=== PATIENT | male | born 1995 | race African-American/Black ===

== ENCOUNTER 2016-09-04 14:30 | Emergency (ER) | payer MEDICAID, OTHER ==
[~2016-09-04] VITALS: Ht 175.3 cm; Wt 58.0 kg
[2016-09-04] MEDS ORDERED: IBUPROFEN 600MG TABLET PO ONE (15:00)
[2016-09-04] MEDS ORDERED: HYDROCODONE/ACETAMINOPHEN 5/325MG TABLET PO ONE (15:00)
[2016-09-04 16:57] VITALS: BP 144/82
== END 2016-09-04 17:50 | disposition home or self-care (01) ==
LOC: ER 16:51
DX: S02.40EA Zygomatic fracture, right side, initial encounter for closed fracture (principal); S09.8XXA Other specified injuries of head, initial encounter; M25.432 Effusion, left wrist; J45.909 Unspecified asthma, uncomplicated; F12.10 Cannabis abuse, uncomplicated; F17.200 Nicotine dependence, unspecified, uncomplicated; W19.XXXA Unspecified fall, initial encounter; Y08.89XA Assault by other specified means, initial encounter; Y93.89 Activity, other specified; Y99.8 Other external cause status; Y92.89 Other specified places as the place of occurrence of the external cause
CPT/HCPCS: 29125; 70450; 70486; 73110; 73130; 99284

== ENCOUNTER 2018-05-11 06:18 | Emergency (ER) | payer MEDICAID, OTHER ==
[~2018-05-11] VITALS: Ht 175.3 cm; Wt 64.0 kg
[2018-05-11] MEDS ORDERED: IBUPROFEN 600MG TABLET PO ONE (08:15)
[2018-05-11 09:28] VITALS: BP 141/91
== END 2018-05-11 09:36 | disposition home or self-care (01) ==
LOC: ER 06:18
DX: S09.8XXA Other specified injuries of head, initial encounter (principal); F17.200 Nicotine dependence, unspecified, uncomplicated; F12.10 Cannabis abuse, uncomplicated; J45.909 Unspecified asthma, uncomplicated; Y08.89XA Assault by other specified means, initial encounter; Y93.89 Activity, other specified; Y92.89 Other specified places as the place of occurrence of the external cause; Y99.8 Other external cause status; Z91.013 Allergy to seafood
CPT/HCPCS: 70486; 99284

== ENCOUNTER 2018-10-10 12:14 | Emergency (ER) | payer MEDICAID ==
[~2018-10-10] VITALS: Ht 175.3 cm; Wt 57.0 kg
[2018-10-10 12:47] VITALS: BP 164/65
== END 2018-10-10 13:13 | disposition home or self-care (01) ==
LOC: ER 12:49
DX: H10.32 Unspecified acute conjunctivitis, left eye (principal); J45.909 Unspecified asthma, uncomplicated
CPT/HCPCS: 99283

== ENCOUNTER 2018-10-13 22:53 | Emergency (ER) | payer MEDICAID ==
[~2018-10-13] VITALS: Ht 175.3 cm; Wt 59.0 kg
[2018-10-13 23:44] VITALS: BP 138/55
== END 2018-10-14 00:38 | disposition left against medical advice (07) ==
LOC: ER 22:53
DX: H57.12 Ocular pain, left eye (principal); Z53.21 Procedure and treatment not carried out due to patient leaving prior to being seen by health care provider

== ENCOUNTER 2018-10-19 08:30 | Emergency (ER) | payer MEDICAID ==
[~2018-10-19] VITALS: Ht 177.8 cm; Wt 89.0 kg
[2018-10-19] MEDS ORDERED: TETRACAINE 0.5% OPHTH DROPS 4ML OP ONE (09:15)
[2018-10-19] MEDS ORDERED: FLUORESCEIN SODIUM 1MG/STRIP OP ONE (09:15)
[2018-10-19] MEDS ORDERED: IBUPROFEN 800MG TABLET PO ONE (10:30)
[2018-10-19] MEDS ORDERED: ONDANSETRON 4MG ODT PO ONE (10:30)
[2018-10-19 10:39] VITALS: BP 114/55
== END 2018-10-19 10:40 | disposition home or self-care (01) ==
LOC: ER 08:30
DX: H10.9 Unspecified conjunctivitis (principal); F12.10 Cannabis abuse, uncomplicated; J45.909 Unspecified asthma, uncomplicated; Z91.013 Allergy to seafood
CPT/HCPCS: 99284; Q0162

== ENCOUNTER 2021-11-09 13:28 | Emergency (ER) | payer MEDICAID ==
[~2021-11-09] VITALS: Ht 175.3 cm; Wt 68.0 kg
[2021-11-09 13:54] VITALS: BP 127/86
[2021-11-09] MEDS ORDERED: TETRACAINE 0.5% OPHTH DROPS 4ML LEFTEYE ONE (17:30)
[2021-11-09] MEDS ORDERED: FLUORESCEIN SODIUM 1MG/STRIP LEFTEYE ONE (17:30)
[2021-11-09] MEDS ORDERED: CYCL15DR11 LEFTEYE (17:42)
[2021-11-09] MEDS ORDERED: PRED5DRO22 LEFTEYE (17:42)
== END 2021-11-09 19:05 | disposition home or self-care (01) ==
LOC: ER 13:28
DX: K12.2 Cellulitis and abscess of mouth (principal); J45.909 Unspecified asthma, uncomplicated; Z98.890 Other specified postprocedural states
CPT/HCPCS: 99283

== ENCOUNTER 2024-12-02 11:49 | Emergency (ER) | payer MEDICAID ==
[~2024-12-02] VITALS: Ht 172.7 cm; Wt 70.0 kg
[~2024-12-02 11:49] MED LIST: CYCL15DR11 LEFTEYE; PRED5DRO22 LEFTEYE
[2024-12-02 12:06] VITALS: O2SAT 98
[2024-12-02] MEDS ORDERED: CYCL15DR11 LEFTEYE (13:50)
[2024-12-02] MEDS ORDERED: PRED5DRO22 LEFTEYE (13:50)
[2024-12-02 14:01] VITALS: BP 140/89; PULSE 67; RESP 14; TEMP 36.8; O2SAT 99
== END 2024-12-02 14:03 | disposition home or self-care (01) ==
LOC: ER 11:49
DX: H20.9 Unspecified iridocyclitis (principal); J45.909 Unspecified asthma, uncomplicated; M06.9 Rheumatoid arthritis, unspecified; Z55.6 Problems related to health literacy; F10.90 Alcohol use, unspecified, uncomplicated; F12.90 Cannabis use, unspecified, uncomplicated; Y90.9 Presence of alcohol in blood, level not specified
CPT/HCPCS: 99283